=== PATIENT | male | born 1960 | race Caucasian/White ===

== ENCOUNTER 2017-12-31 04:17 | Inpatient (IN) | payer BC ==
[~2017-12-31] VITALS: Ht 177.8 cm; Wt 127.5 kg
--- NOTE | 2017-12-31 04:37 | PHYS DOC ---
Past Medical History Past Medical History: Diabetes-Type II, High Cholesterol, Hypertension Past Surgical History: Appendectomy Smoking: Cigarettes (The patient is a nonsmoker.) Adult General Chief Complaint Chief Complaint: GENERAL COMPLAINT HPI HPI Patient is a 57-year-old male who presents to the emergency department for evaluation. He states that for the past 2-3 days he just hasn't felt well, with a poor appetite, and general malaise and fatigue. He has not had any real pain. He denies any headache or chest pain, or shortness of breath, has not had any significant cough. He has felt somewhat dizzy and lightheaded at times. He states he was constipated but took some MiraLAX to help him have a bowel movement. He has had some generalized abdominal discomfort and a poor appetite, but no definite abdominal pain. He is noted to be febrile and tachycardic upon arrival. He has not had any nausea, vomiting, black or bloody stools, or diarrhea. There are no alleviating or exacerbating factors to his symptoms. She does report decreased by mouth intake. Patient denies any tick bites or known exposure to tick infested areas. Review of Systems Review of Systems Constitutional: Reports chills [] Eyes: Denies change in visual acuity, redness, or eye pain [] HENT: Denies nasal congestion or sore throat [] Respiratory: Denies cough or shortness of breath [] Cardiovascular: The patient denies any shortness of breath, chest pain, palpitations, or orthopnea[] GI: As per history of present illness[] : Denies dysuria or hematuria [] Musculoskeletal: Denies back pain or joint pain /arthralgias or myalgias.[] Integument: Denies rash or skin lesions [] Neurologic: Denies headache, focal weakness or sensory changes [] Endocrine: Denies polyuria or polydipsia [] All other systems were reviewed and found to be within normal limits, except as documented in this note. Current Medications Current Medications Current Medications Medications (Trade) Dose Ordered Sig/Geovanny Start Time Stop Time Status Last Admin Dose Admin Acetaminophen (Tylenol) 1,000 mg 1X ONCE 12/31/17 05:00 12/31/17 05:01 DC 12/31/17 05:16 1,000 MG Ceftriaxone Sodium 50 ml @ 100 mls/hr 1X ONCE 12/31/17 05:00 12/31/17 05:29 DC 12/31/17 05:17 100 MLS/HR Sodium Chloride 1,000 ml @ 1,000 mls/hr Q1H 12/31/17 05:00 12/31/17 08:44 12/31/17 05:18 1,000 MLS/HR Allergies Allergies Allergies Coded Allergies Type Severity Reaction Last Updated Verified Penicillins Allergy Intermediate 12/31/17 Yes amoxicillin Allergy Intermediate 12/31/17 Yes clavulanic acid Allergy Intermediate 12/31/17 Yes Physical Exam Physical Exam PHYSICAL EXAM: CONSTITUTIONAL: Well developed, well nourished HEAD: normocephalic, atraumatic EENT: PERRL, EOMI. Conjunctivae normal color, sclerae non-icteric; mildly dry mucous membranes. NECK: Supple, non-tender; no meningismus. LUNGS: Lungs CTA, breathing even and unlabored. Normal air movement. HEART: Regular tachycardia cardia, no murmur CHEST: No deformity; non-tender ABDOMEN: The abdomen is soft, mildly distended, with diminished bowel sounds, there is mild diffuse tenderness to palpation, without focal tenderness, rebound , or guarding, no masses or bruits. There is no focal right upper quadrant tenderness to palpation. Meier sign is absent. EXTREM: Normal ROM; no deformity, no calf tenderness. Normal pulses palpable in all extremities. There is no pedal edema. SKIN: No rash; no diaphoresis NEURO: Alert; normal speech and cognition; CN's grossly intact; strength grossly intact without focal deficit. BACK: No CVA TTP. Current Patient Data Lab Values Laboratory Tests Test 12/31/17 04:47 12/31/17 04:57 White Blood Count 3.9 x10^3/uL (4.0-11.0) L Red Blood Count 4.89 x10^6/uL (4.30-5.70) Hemoglobin 15.8 g/dL (13.0-17.5) Hematocrit 43.5 % (39.0-53.0) Mean Corpuscular Volume 89 fL (79-100) Mean Corpuscular Hemoglobin 32 pg (25-35) Mean Corpuscular Hemoglobin Concent 36 g/dL (31-37) Red Cell Distribution Width 13.3 % (11.5-14.5) Platelet Count 135 x10^3/uL (140-400) L Neutrophils (%) (Auto) 76 % (31-73) H Lymphocytes (%) (Auto) 12 % (24-48) L Monocytes (%) (Auto) 12 % (0-9) H Eosinophils (%) (Auto) 0 % (0-3) Basophils (%) (Auto) 1 % (0-3) Neutrophils # (Auto) 3.0 x10^3uL (1.8-7.7) Lymphocytes # (Auto) 0.5 x10^3/uL (1.0-4.8) L Monocytes # (Auto) 0.5 x10^3/uL (0.0-1.1) Eosinophils # (Auto) 0.0 x10^3/uL (0.0-0.7) Basophils # (Auto) 0.0 x10^3/uL (0.0-0.2) Prothrombin Time 13.4 SEC (11.7-14.0) Prothrombin Time INR 1.1 (0.8-1.1) Sodium Level 128 mmol/L (136-145) L Potassium Level 4.6 mmol/L (3.5-5.1) Chloride Level 93 mmol/L (98-107) L Carbon Dioxide Level 26 mmol/L (21-32) Anion Gap 9 (6-14) 18 mmol/L (6-14) H Blood Urea Nitrogen 30 mg/dL (8-26) H Creatinine 2.0 mg/dL (0.7-1.3) H Estimated GFR (Cockcroft-Gault) 34.4 BUN/Creatinine Ratio 15 (6-20) Glucose Level 260 mg/dL (70-99) H 250 mg/dL (70-99) H Lactic Acid Level 1.9 mmol/L (0.4-2.0) Calcium Level 9.0 mg/dL (8.5-10.1) Magnesium Level 2.0 mg/dL (1.8-2.4) Total Bilirubin 1.6 mg/dL (0.2-1.0) H Aspartate Amino Transferase (AST) 64 U/L (15-37) H Alanine Aminotransferase (ALT) 85 U/L (16-63) H Alkaline Phosphatase 44 U/L (46-116) L Creatine Kinase 182 U/L (39-308) Creatine Kinase MB (Mass) 1.4 ng/mL (0.0-3.6) Creatine Kinase MB Relative Index 0.8 % (0-4) Troponin I Quantitative < 0.017 ng/mL (0.000-0.055) JX-Fur-C-Type Natriuretic Peptide 106 pg/mL (0-124) Total Protein 7.0 g/dL (6.4-8.2) Albumin 4.1 g/dL (3.4-5.0) Albumin/Globulin Ratio 1.4 (1.0-1.7) Lipase 154 U/L (73-393) Thyroid Stimulating Hormone (TSH) 3.706 uIU/mL (0.358-3.74) Free Thyroxine 0.99 ng/dL (0.76-1.46) Heterophil Agglutinins Negative (NEGATIVE) POC Hemoglobin 15.3 g/dL (14-18) POC Hematocrit 45 % (37-52) POC Sodium 130 mmol/L (135-145) L POC Potassium 4.5 mmol/L (3.5-5.0) POC Chloride 93 mmol/L (98-110) L POC Total CO2 25 mmol/L (23-32) POC Blood Urea Nitrogen 31 mg/dL (8-26) H POC Creatinine 1.9 mg/dL (0.5-1.4) H POC Ionized Calcium (Kianna) 1.10 mmol/L (1.13-1.32) L Laboratory Tests 12/31/17 04:47 Laboratory Tests 12/31/17 04:47 12/31/17 04:57 EKG EKG [Sinus tachycardia at a rate of 138 bpm, rightward axis, normal intervals, there are no acute ischemic ST/T changes.] Radiology/Procedures Radiology/Procedures [ER physician for limited chest X interpretation: Prominent mediastinum likely a result of AP projection, without other acute abnormality. Course & Med Decision Making Course & Med Decision Making Pertinent Labs and Imaging studies reviewed. (See chart for details) [Patient's condition remained stable. His heart rate has improved to the 110's. I'm uncertain of the etiology of his symptoms. His blood testing certainly could be consistent with a rickettsial illness. I discussed the case with the patient's PCP, who will admit the patient for further evaluation and treatment. CT abdomen/pelvis report is currently pending., as is UA, pending specimen collection] Dragon Disclaimer Dragon Disclaimer This electronic medical record was generated, in whole or in part, using a voice recognition dictation system. Departure Departure Impression: Primary Impression: FUO (fever of unknown origin) Additional Impressions: Hyponatremia Renal insufficiency Elevated liver function tests Disposition: ADMITTED INPATIENT Admitting Physician: Cheo Daily Condition: STABLE Referrals: CHEO DAILY MD (PCP) Problem Qualifiers PARISH JONES MD Dec 31, 2017 04:37
[2017-12-31] MEDS ORDERED: ASPI325T8 PO (04:40)
[2017-12-31] MEDS ORDERED: AMLO5TAB2 PO (04:40)
[2017-12-31] MEDS ORDERED: IRBE300T3 PO (04:40)
[2017-12-31] MEDS ORDERED: FENO134C PO (04:41)
[2017-12-31] MEDS ORDERED: ATOR10TA PO (04:41)
[2017-12-31] MEDS ORDERED: PIOG45TA40 PO (04:41)
[2017-12-31] MEDS ORDERED: METF500T5 PO (04:41)
[2017-12-31] MEDS ORDERED: ALPR0.5T PO (04:42)
[2017-12-31] MEDS ORDERED: ZOLP10TA PO (04:42)
[2017-12-31 04:59] LABS: BASO % 1 % (0-3); EOS % 0 % (0-3); HEMATOCRIT 43.5 % (39.0-53.0); HEMOGLOBIN 15.8 g/dL (13.0-17.5); LYMPH # 0.5 x10^3/uL (1.0-4.8); LYMPH % 12 % (24-48); MEAN CORPUSCULAR HEMOGLOBIN 32 pg (25-35); MEAN CORPUSCULAR HGB CONC 36 g/dL (31-37); MEAN CORPUSCULAR VOLUME 89 fL (79-100); MONO # 0.5 x10^3/uL (0.0-1.1); MONO % 12 % (0-9); NEUT % 76 % (31-73); PLATELET COUNT 135 x10^3/uL (140-400); RED BLOOD COUNT 4.89 x10^6/uL (4.30-5.70); RED CELL DISTRIBUTION WIDTH 13.3 % (11.5-14.5); WHITE BLOOD COUNT 3.9 x10^3/uL (4.0-11.0)
[2017-12-31] MEDS ORDERED: ACETAMINOPHEN 500 MG TABLET PO ONE (05:00)
[2017-12-31 05:11] LABS: PROTHROMBIN TIME PATIENT 13.4 SEC (11.7-14.0)
[2017-12-31 05:13] LABS: GFR 34.4; POTASSIUM 4.6 mmol/L (3.5-5.1)
[2017-12-31 05:16] LABS: CREATININE ISTAT 1.9 mg/dL (0.5-1.4); HEMOGLOBIN ISTAT 15.3 g/dL (14-18); ION CA ISTAT 1.1 mmol/L (1.13-1.32); POTASSIUM ISTAT 4.5 mmol/L (3.5-5.0)
[2017-12-31] MEDS: IV NORMAL SALINE 1000ML BAG 1,000 ML IV SCH ×4 (05:18→10:11)
[2017-12-31 05:24] LABS: ALBUMIN 4.1 g/dL (3.4-5.0); ALBUMIN/GLOBULIN RATIO 1.4 (1.0-1.7); TOTAL BILIRUBIN 1.6 mg/dL (0.2-1.0)
[2017-12-31 05:26] LABS: FREE T4 0.99 ng/dL (0.76-1.46); THYROID STIM HORMONE (TSH) 3.706 uIU/mL (0.358-3.74)
[2017-12-31 05:28] LABS: MONONUCLEOSIS PATIENT NEGATIVE (NEGATIVE)
--- NOTE | 2017-12-31 06:06 | RAD ---
CT abdomen and pelvis without contrast 12/31/2017 CLINICAL INDICATION: Abdominal pain and fever. COMPARISON: None. TECHNIQUE: Multiple CT images of the abdomen and pelvis were obtained without contrast. *One or more of the following individualized dose reduction techniques were utilized for this examination: 1. Automated exposure control. 2. Adjustment of the mA and/or kV according to patient size. 3. Use of iterative reconstruction technique. FINDINGS: Heart size is normal. Coronary artery calcifications. Visualized lung bases are clear. Mild diffuse hepatic steatosis. Mild splenomegaly measuring 15 cm oblique CC. Cholelithiasis in a nondilated gallbladder. Unenhanced contours of the adrenal glands, pancreas and kidneys are grossly unremarkable apart from a few tiny bilateral renal sinus cysts. No hydronephrosis or nephrolithiasis. Abdominal aorta normal in caliber with mild aortoiliac calcified atheromatous disease. Small and large bowel loops are normal in caliber without obstruction. Mild distal colonic diverticula without diverticulitis. Appendix is not discretely identified, however no secondary findings of appendicitis of the base of the cecum. Minimally distended unopacified urinary bladder, prostate seminal vesicles are unremarkable. There are no destructive osseous lesions. IMPRESSION: 1. Cholelithiasis. 2. Mild hepatic steatosis. 3. Mild splenomegaly. 4. Appendix is not visualized, however no secondary findings of appendicitis at the base of the cecum. 5. Coronary artery calcifications. Electronically signed by: Zeus Sommer MD (12/31/2017 6:02 AM) [facility]
[2017-12-31 06:22] LABS: BACTERIA,URINE FEW /HPF (0-FEW); BILIRUBIN,URINE SMALL (NEG); CLARITY,URINE CLOUDY; COLOR,URINE ORANGE; HYALINE CASTS, URINE MODERATE /HPF; NITRITE,URINE NEGATIVE (NEG); PROTEIN,URINE 100 mg/dL (NEG-TRACE); RBC,URINE RARE /HPF (0-2)
--- NOTE | 2017-12-31 06:22 | EKG ---
[facility] [address] [place] [address] Test Date: 2017-12-31 Test Time: 04:28:47 Pat Name: ALMA DELIA REYNA Department: Room: [facility] 1 Gender: M [employer] Engine [employer] Manager: : 1960 Requested By: PARISH JONES Order Number: [id number] Reading MD: Felton Amin MD Measurements Intervals [place] Rate: 137 P: -144 SC: 120 QRS: 175 QRSD: 72 T: 21 QT: 258 QTc: 396 Interpretive Statements PROBABLE SINUS TACHYCARDIA LIMB LEAD MISPLACEMENT Electronically Signed On 01-03-2018 10:35:36 CDT by Felton Amin MD
[2017-12-31 07:00] VITALS: BP 100/53
--- NOTE | 2017-12-31 07:10 | RAD ---
Portable AP chest. HISTORY: Fever Portable AP view was taken of the chest. The abdomen partially obscures visualization of the lung bases. No confluent infiltrates are noted. Heart is normal in size. IMPRESSION: 1. No acute infiltrates noted. Electronically signed by: Obed Schneider MD (12/31/2017 7:07 AM) [facility]
[2017-12-31] MEDS: LOSARTAN POTASSIUM 50 MG TABLET. PO SCH (09:00)
[2017-12-31] MEDS: amLODIPine BESYLATE 5 MG TABLET PO SCH (09:00)
--- NOTE | 2017-12-31 09:00 | PDOC ---
GENERAL General: see dictated H&P. VITAL SIGNS Vital Signs: Vital Signs Date Time Temp Pulse Resp B/P (MAP) Pulse Ox O2 Delivery O2 Flow Rate FiO2 12/31/17 07:00 98.1 74 16 100/53 (69) 93 Room Air 98.1 12/31/17 06:00 2.0 I & O I & O Intake and Output 12/31/17 07:00 Intake Total 1170 ml Output Total 0 ml Balance 1170 ml Intake Oral 120 ml IV Total 1050 ml Output Urine Total 0 ml ALLERGIES Allergies: Allergies Coded Allergies Type Severity Reaction Last Updated Verified Penicillins Allergy Intermediate 12/31/17 Yes amoxicillin Allergy Intermediate 12/31/17 Yes clavulanic acid Allergy Intermediate 12/31/17 Yes MEDS Medications: Current Medications Medications (Trade) Dose Ordered Sig/Geovanny Start Time Stop Time Status Last Admin Dose Admin Acetaminophen (Tylenol) 1,000 mg 1X ONCE 12/31/17 05:00 12/31/17 05:01 DC 12/31/17 05:16 1,000 MG Alprazolam (Xanax) 0.5 mg TID 12/31/17 09:00 Amlodipine Besylate (Norvasc) 5 mg DAILY 12/31/17 09:00 Aspirin (Kavita Aspirin) 325 mg DAILY 12/31/17 09:00 Atorvastatin Calcium (Lipitor) 10 mg QHS 12/31/17 21:00 Ceftriaxone Sodium 50 ml @ 100 mls/hr 1X ONCE 12/31/17 05:00 12/31/17 05:29 DC 12/31/17 05:17 100 MLS/HR Losartan Potassium (Cozaar) 50 mg DAILY 12/31/17 09:00 Pioglitazone HCl (Actos) 45 mg DAILY 12/31/17 09:00 Sodium Chloride 1,000 ml @ 1,000 mls/hr Q1H 12/31/17 05:00 12/31/17 08:44 DC 12/31/17 08:13 1,000 MLS/HR LAB Lab: Laboratory Tests Test 12/31/17 04:47 12/31/17 04:57 12/31/17 05:58 12/31/17 07:23 White Blood Count 3.9 x10^3/uL (4.0-11.0) Red Blood Count 4.89 x10^6/uL (4.30-5.70) Hemoglobin 15.8 g/dL (13.0-17.5) Hematocrit 43.5 % (39.0-53.0) Mean Corpuscular Volume 89 fL (79-100) Mean Corpuscular Hemoglobin 32 pg (25-35) Mean Corpuscular Hemoglobin Concent 36 g/dL (31-37) Red Cell Distribution Width 13.3 % (11.5-14.5) Platelet Count 135 x10^3/uL (140-400) Neutrophils (%) (Auto) 76 % (31-73) Lymphocytes (%) (Auto) 12 % (24-48) Monocytes (%) (Auto) 12 % (0-9) Eosinophils (%) (Auto) 0 % (0-3) Basophils (%) (Auto) 1 % (0-3) Neutrophils # (Auto) 3.0 x10^3uL (1.8-7.7) Lymphocytes # (Auto) 0.5 x10^3/uL (1.0-4.8) Monocytes # (Auto) 0.5 x10^3/uL (0.0-1.1) Eosinophils # (Auto) 0.0 x10^3/uL (0.0-0.7) Basophils # (Auto) 0.0 x10^3/uL (0.0-0.2) Prothrombin Time 13.4 SEC (11.7-14.0) Prothromb Time International Ratio 1.1 (0.8-1.1) Sodium Level 128 mmol/L (136-145) Potassium Level 4.6 mmol/L (3.5-5.1) Chloride Level 93 mmol/L (98-107) Carbon Dioxide Level 26 mmol/L (21-32) Anion Gap 9 (6-14) 18 mmol/L (6-14) Blood Urea Nitrogen 30 mg/dL (8-26) Creatinine 2.0 mg/dL (0.7-1.3) Estimated GFR (Cockcroft-Gault) 34.4 BUN/Creatinine Ratio 15 (6-20) Glucose Level 260 mg/dL (70-99) 250 mg/dL (70-99) Lactic Acid Level 1.9 mmol/L (0.4-2.0) Calcium Level 9.0 mg/dL (8.5-10.1) Magnesium Level 2.0 mg/dL (1.8-2.4) Total Bilirubin 1.6 mg/dL (0.2-1.0) Aspartate Amino Transf (AST/SGOT) 64 U/L (15-37) Alanine Aminotransferase (ALT/SGPT) 85 U/L (16-63) Alkaline Phosphatase 44 U/L (46-116) Creatine Kinase 182 U/L (39-308) Creatine Kinase MB (Mass) 1.4 ng/mL (0.0-3.6) Creatine Kinase MB Relative Index 0.8 % (0-4) Troponin I Quantitative < 0.017 ng/mL (0.000-0.055) TV-Doq-B-Type Natriuretic Peptide 106 pg/mL (0-124) Total Protein 7.0 g/dL (6.4-8.2) Albumin 4.1 g/dL (3.4-5.0) Albumin/Globulin Ratio 1.4 (1.0-1.7) Lipase 154 U/L (73-393) Thyroid Stimulating Hormone (TSH) 3.706 uIU/mL (0.358-3.74) Free Thyroxine 0.99 ng/dL (0.76-1.46) Heterophil Agglutinins Negative (NEGATIVE) Bedside Hemoglobin 15.3 g/dL (14-18) Bedside Hematocrit 45 % (37-52) Bedside Sodium 130 mmol/L (135-145) Bedside Potassium 4.5 mmol/L (3.5-5.0) Bedside Chloride 93 mmol/L (98-110) Bedside Total CO2 25 mmol/L (23-32) Bedside Blood Urea Nitrogen 31 mg/dL (8-26) Bedside Creatinine 1.9 mg/dL (0.5-1.4) Bedside Ionized Calcium (Kianna) 1.10 mmol/L (1.13-1.32) Urine Collection Type Void Urine Color [place] Urine Clarity Cloudy Urine pH 5.0 Urine Specific [place] >=1.030 Urine Protein 100 mg/dL (NEG-TRACE) Urine Glucose (UA) >=1000 mg/dL (NEG) Urine Ketones (Stick) Trace mg/dL (NEG) Urine Blood Negative (NEG) Urine Nitrite Negative (NEG) Urine Bilirubin Small (NEG) Urine Urobilinogen Dipstick 1.0 mg/dL (0.2 mg/dL) Urine Leukocyte Esterase Negative (NEG) Urine RBC Rare /HPF (0-2) Urine WBC 1-4 /HPF (0-4) Urine Squamous Epithelial Cells None /LPF Urine Bacteria Few /HPF (0-FEW) Urine Hyaline Casts Moderate /HPF Urine Mucus Mod /LPF Glucose (Fingerstick) 185 mg/dL (70-99) CHEO DAILY MD Dec 31, 2017 09:00
--- NOTE | 2017-12-31 09:17 | PDOC ---
Infectious Disease Note Vital Sign Vital Signs Vital Signs Date Time Temp Pulse Resp B/P (MAP) Pulse Ox O2 Delivery O2 Flow Rate FiO2 12/31/17 07:00 98.1 74 16 100/53 (69) 93 Room Air 98.1 12/31/17 06:00 2.0 Labs Lab Laboratory Tests Test 12/31/17 04:47 12/31/17 04:57 12/31/17 05:58 12/31/17 07:23 White Blood Count 3.9 x10^3/uL (4.0-11.0) Red Blood Count 4.89 x10^6/uL (4.30-5.70) Hemoglobin 15.8 g/dL (13.0-17.5) Hematocrit 43.5 % (39.0-53.0) Mean Corpuscular Volume 89 fL (79-100) Mean Corpuscular Hemoglobin 32 pg (25-35) Mean Corpuscular Hemoglobin Concent 36 g/dL (31-37) Red Cell Distribution Width 13.3 % (11.5-14.5) Platelet Count 135 x10^3/uL (140-400) Neutrophils (%) (Auto) 76 % (31-73) Lymphocytes (%) (Auto) 12 % (24-48) Monocytes (%) (Auto) 12 % (0-9) Eosinophils (%) (Auto) 0 % (0-3) Basophils (%) (Auto) 1 % (0-3) Neutrophils # (Auto) 3.0 x10^3uL (1.8-7.7) Lymphocytes # (Auto) 0.5 x10^3/uL (1.0-4.8) Monocytes # (Auto) 0.5 x10^3/uL (0.0-1.1) Eosinophils # (Auto) 0.0 x10^3/uL (0.0-0.7) Basophils # (Auto) 0.0 x10^3/uL (0.0-0.2) Prothrombin Time 13.4 SEC (11.7-14.0) Prothromb Time International Ratio 1.1 (0.8-1.1) Sodium Level 128 mmol/L (136-145) Potassium Level 4.6 mmol/L (3.5-5.1) Chloride Level 93 mmol/L (98-107) Carbon Dioxide Level 26 mmol/L (21-32) Anion Gap 9 (6-14) 18 mmol/L (6-14) Blood Urea Nitrogen 30 mg/dL (8-26) Creatinine 2.0 mg/dL (0.7-1.3) Estimated GFR (Cockcroft-Gault) 34.4 BUN/Creatinine Ratio 15 (6-20) Glucose Level 260 mg/dL (70-99) 250 mg/dL (70-99) Lactic Acid Level 1.9 mmol/L (0.4-2.0) Calcium Level 9.0 mg/dL (8.5-10.1) Magnesium Level 2.0 mg/dL (1.8-2.4) Total Bilirubin 1.6 mg/dL (0.2-1.0) Aspartate Amino Transf (AST/SGOT) 64 U/L (15-37) Alanine Aminotransferase (ALT/SGPT) 85 U/L (16-63) Alkaline Phosphatase 44 U/L (46-116) Creatine Kinase 182 U/L (39-308) Creatine Kinase MB (Mass) 1.4 ng/mL (0.0-3.6) Creatine Kinase MB Relative Index 0.8 % (0-4) Troponin I Quantitative < 0.017 ng/mL (0.000-0.055) CM-Bed-S-Type Natriuretic Peptide 106 pg/mL (0-124) Total Protein 7.0 g/dL (6.4-8.2) Albumin 4.1 g/dL (3.4-5.0) Albumin/Globulin Ratio 1.4 (1.0-1.7) Lipase 154 U/L (73-393) Thyroid Stimulating Hormone (TSH) 3.706 uIU/mL (0.358-3.74) Free Thyroxine 0.99 ng/dL (0.76-1.46) Heterophil Agglutinins Negative (NEGATIVE) Bedside Hemoglobin 15.3 g/dL (14-18) Bedside Hematocrit 45 % (37-52) Bedside Sodium 130 mmol/L (135-145) Bedside Potassium 4.5 mmol/L (3.5-5.0) Bedside Chloride 93 mmol/L (98-110) Bedside Total CO2 25 mmol/L (23-32) Bedside Blood Urea Nitrogen 31 mg/dL (8-26) Bedside Creatinine 1.9 mg/dL (0.5-1.4) Bedside Ionized Calcium (Kianna) 1.10 mmol/L (1.13-1.32) Urine Collection Type Void Urine Color [place] Urine Clarity Cloudy Urine pH 5.0 Urine Specific [place] >=1.030 Urine Protein 100 mg/dL (NEG-TRACE) Urine Glucose (UA) >=1000 mg/dL (NEG) Urine Ketones (Stick) Trace mg/dL (NEG) Urine Blood Negative (NEG) Urine Nitrite Negative (NEG) Urine Bilirubin Small (NEG) Urine Urobilinogen Dipstick 1.0 mg/dL (0.2 mg/dL) Urine Leukocyte Esterase Negative (NEG) Urine RBC Rare /HPF (0-2) Urine WBC 1-4 /HPF (0-4) Urine Squamous Epithelial Cells None /LPF Urine Bacteria Few /HPF (0-FEW) Urine Hyaline Casts Moderate /HPF Urine Mucus Mod /LPF Glucose (Fingerstick) 185 mg/dL (70-99) Objective Assessment Fever with constitutional sy , 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
--- NOTE | 2017-12-31 10:03 | HP ---
ADMIT DATE: 12/31/2017 CHIEF COMPLAINT AND HISTORY OF PRESENT ILLNESS: This 57-year-old white male is well known to me from followup in the office. The patient presented to the Emergency Room on the morning of admission with profound weakness, fevers, chills and anorexia, which have been going on since Wednesday with relatively sudden onset. He admitted to sweats particularly at night having to change clothes on several occasions with the same. He denies any other localizing symptoms with infection and denies that really aches are a major problem with this, although he does have a little bit of a headache. PAST MEDICAL HISTORY: The patient's past medical history is remarkable for diabetes, hyperlipidemia and hypertension. PAST SURGICAL HISTORY: Remarkable for an appendectomy. MEDICATIONS: Brought with the patient, listed on the computer and have been addressed. ALLERGIES: HE IS ALLERGIC TO AUGMENTIN. FAMILY HISTORY: Noncontributory. REVIEW OF SYSTEMS: As mentioned above. PHYSICAL EXAMINATION: GENERAL: He is a well-developed, well-nourished white male, appearing mildly ill. VITAL SIGNS: Stable with a temperature of 102.3 since admission. HEAD, EYES, EARS, NOSE AND THROAT: Unremarkable. NECK: Supple without bruit or thyromegaly. CHEST: Clear to auscultation and percussion. HEART: Slightly tachycardic, regular without S3, S4 or murmur. ABDOMEN: Soft, nontender, without hepatosplenomegaly or masses. EXTREMITIES: Without cyanosis, clubbing or edema. NEUROLOGIC: Intact. SKIN: Survey is normal without any rashes. JOINTS: Without any swelling, etc. LABORATORY DATA: Initial laboratory is remarkable for mild leukopenia with a white count of 3900. His platelets are mildly depressed at 135,000. Differential shows 76% neutrophils and 12% monos, which are both elevated. Initial laboratory is remarkable for hyponatremia with sodium of 128. He has an acute renal injury with BUN of 30 and creatinine of 2. Glucose on admission is 260. He has mild elevation of transaminases with AST of 64, ALT of 85 and his bilirubin is 1.6. Urinalysis is normal and heterophile agglutinins are negative. IMPRESSION: Febrile illness with associated hyponatremia, leukopenia and acute renal failure as well as some elevated liver function test. PLAN: The patient has been admitted. He has been given a dose of Rocephin in the Emergency Room. His home meds have been restarted. I am going to ask Infectious Disease to come along and see him as I am not sure what is driving the bus, although I would expect that this is probably virally mediated. He gives no history at this point in time for any sort of tick exposure, etc., which would be a possibility in addition. CHEO DAILY MD DR: CORBY/marianne JOB#: [id number] / [id number]
[2017-12-31] MEDS: ALPRAZolam 0.5 MG TABLET PO SCH ×3 (10:11→20:38)
[2017-12-31] MEDS: PIOGLITAZONE 15 MG TABLET. PO SCH (10:13)
[2017-12-31] MEDS: ASPIRIN 325 MG TABLET PO SCH (10:13)
[2017-12-31] MEDS: DOXYCYCLINE HYCLATE 100 MG in IV DEXTROSE 5% 100ML 100 ML IV SCH ×2 (10:22→22:43)
[2017-12-31] MEDS: cefTRIAXone IV Push 1 GM VIAL. IVP SCH (10:22)
[2017-12-31 11:00] VITALS: BP 104/54
[2017-12-31 15:00] VITALS: BP 126/58
--- NOTE | 2017-12-31 15:24 | CONS ---
DATE OF CONSULTATION: 12/31/2017 REQUESTING PHYSICIAN: Dr. Sommers. REASON FOR CONSULTATION: Fever of unknown origin. HISTORY OF PRESENT ILLNESS: This is a 57-year-old gentleman with a history of diabetes, hypertension, although quite otherwise healthy, who presented with about 3-day history of not feeling well, body ache, headache, malaise, no energy, fever and sweats. The patient denied any cough, shortness of breath. He had slight headache. Denied any chest pain, abdominal pain, urinary symptoms or bowel symptoms. The patient was seen in the ER and was admitted. The patient did have 102.3 temperature. His other remarkable thing was low WBCs, low platelets and elevated liver function tests. The patient had a CT of the abdomen and pelvis, which was unremarkable other than cholelithiasis. The patient also had a chest x-ray, which was unremarkable. The patient had been given a dose of Rocephin and consult has been requested. The patient denies any other complaints. PAST MEDICAL HISTORY: Positive for diabetes, hypertension, hyperlipidemia, has had appendicectomy. SOCIAL HISTORY: Negative for smoking, alcohol use or drug use. The patient does a lot of outside yard work as well as he plays golf, and he does not remember any tick bite, but he does not check after doing those activities. There is no recent travel. No other pertinent history. ALLERGIES: LISTED ALLERGIC TO PENICILLIN, CAUSES A RASH. REVIEW OF SYSTEMS: As per HPI, all other systems reviewed are negative. CURRENT MEDICATIONS: Reviewed. The patient has been given one dose of Rocephin IV. PHYSICAL EXAMINATION: GENERAL: Alert and awake gentleman, not in distress. VITAL SIGNS: Temperature 98.1 with a T-max 102.3, pulse 74, respirations 16, blood pressure 100/53. HEENT: Anicteric. NECK: Supple, no JVP, no lymphadenopathy. LUNGS: Clear. HEART: S1, S2 regular. ABDOMEN: Benign. EXTREMITIES: No edema or cyanosis. SKIN: Unremarkable. NEUROLOGIC: The patient is neurologically intact. LABORATORY DATA: White count is 3.9, platelets are 135,000. There are no prior numbers for comparison available. His BUN is 31, creatinine is 1.9. Urinalysis, unremarkable. Heterophile agglutinin is negative. CT abdomen, pelvis and chest x-ray as I mentioned in the HPI. IMPRESSION: 1. 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 He does not look sick enough to have [place] spotted fever. 2. Dehydration with acute renal failure. 3. Diabetes. 4. Hypertension. 5. Hyperlipidemia. RECOMMENDATIONS: We will start him on doxycycline, continue Rocephin. We will order ehrlichia PCR. Blood culture has not been done, we will order those and continue to follow. Thank you very much, Dr. Sommers for giving me the opportunity to participate in this patient's care. VALERIY GUZMÁN MD DR: AMBER/marianne JOB#: [id number] / [id number]
[2017-12-31 19:10] VITALS: BP 135/68
[2017-12-31] MEDS ORDERED: ACETAMINOPHEN 325 MG TABLET. PO PRN (20:30)
[2017-12-31] MEDS: ATORVASTATIN CALCIUM 10 MG TABLET. PO SCH (20:38)
[2017-12-31 23:00] VITALS: BP 100/62
[2018-01-01] VITALS (7 sets, daily range): BP systolic 107–144; BP diastolic 57–68
[2018-01-01] MEDS: LOSARTAN POTASSIUM 50 MG TABLET. PO SCH (08:51)
[2018-01-01] MEDS: ASPIRIN 325 MG TABLET PO SCH (08:52)
[2018-01-01] MEDS: PIOGLITAZONE 15 MG TABLET. PO SCH (08:52)
[2018-01-01] MEDS: ALPRAZolam 0.5 MG TABLET PO SCH ×3 (08:52→21:15)
[2018-01-01] MEDS: amLODIPine BESYLATE 5 MG TABLET PO SCH (08:52)
[2018-01-01] MEDS: DOXYCYCLINE HYCLATE 100 MG in IV DEXTROSE 5% 100ML 100 ML IV SCH ×2 (08:53→21:15)
[2018-01-01] MEDS: cefTRIAXone IV Push 1 GM VIAL. IVP SCH (11:37)
--- NOTE | 2018-01-01 15:27 | PDOC ---
Infectious Disease Note Subjective Subjective Feeling better over-all 102.6 temp last evening. No further fevers so far today. Denies chills/sweats/N/V/D/cough/rash ROS ROS per HPI otherwise negative Vital Sign Vital Signs Vital Signs Date Time Temp Pulse Resp B/P (MAP) Pulse Ox O2 Delivery O2 Flow Rate FiO2 01/01/18 11:37 98.8 94 16 144/68 (93) 92 98.8 01/01/18 08:00 Room Air Physical Exam PHYSICAL EXAM GENERAL: Propped up in bed, alert, smiling NECK: Supple, no JVP, no lymphadenopathy. LUNGS: Clear. HEART: S1, S2 regular. ABDOMEN: Obese, soft, NT EXTREMITIES: No edema or cyanosis. 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 He does not look sick enough to have Gotham spotted fever. 2. Dehydration with acute renal failure. 3. Diabetes. 4. Hypertension. 5. Hyperlipidemia. Plan Plan of Care Clinically improving Continue jose and Farzana Unable to order Ehrlichia PCR/AB tests Supportive care D/w Patient seen and examined. Chart reviewed in detail. Case discussed with TRAFFIC REPRESENTATIVE. Agree with above plan. SOLIS DELAROSA APRN Jan 01, 2018 15:27 YOLI VILLALTA MD Jan 01, 2018 19:43
[2018-01-01] MEDS: ATORVASTATIN CALCIUM 10 MG TABLET. PO SCH (21:14)
[2018-01-01] MEDS: LACTOBACILLUS RHAMNOSUS GG 1 CAPSULE. PO SCH (21:15)
[2018-01-01] MEDS: ZOLPIDEM 5 MG TABLET. PO PRN (21:15)
--- NOTE | 2018-01-01 21:24 | PN ---
DATE: 01/01/2018 LOCATION: Room 550. SUBJECTIVE: The patient is awake and alert, still feels quite fatigued and anorexic, feels better when he is not running a fever. Still does not recall any sort of tick bites prior to this admission in all summer. OBJECTIVE: VITAL SIGNS: Stable. T-max in the last 24 hours was last evening of around 102.6. CHEST: Clear. HEART: Regular. ABDOMEN: Benign. SKIN: No skin rash. Sugars have been much better. Infectious Disease consults are appreciated. IMPRESSION: Febrile illness, most consistent with either rickettsial disease versus viral with depressed white count on admission. PLAN: Continue on present therapy, which includes Rocephin and doxycycline. Await any pending cultures and plans for discharge will be per ID as we get further along. CHEO DAILY MD DR: CORBY/marianne JOB#: [id number] / [id number]
[2018-01-02 03:00] VITALS: BP 116/66
[2018-01-02 05:42] LABS: HEMATOCRIT 35.2 % (39.0-53.0); HEMOGLOBIN 12.9 g/dL (13.0-17.5); RED BLOOD COUNT 3.99 x10^6/uL (4.30-5.70); RED CELL DISTRIBUTION WIDTH 13.2 % (11.5-14.5); WHITE BLOOD COUNT 2.7 x10^3/uL (4.0-11.0)
[2018-01-02 06:04] LABS: ALBUMIN 3.2 g/dL (3.4-5.0); ALBUMIN/GLOBULIN RATIO 1.1 (1.0-1.7); CALCIUM 8.5 mg/dL (8.5-10.1); CREATININE 1.3 mg/dL (0.7-1.3); GFR 56.5; POTASSIUM 3.8 mmol/L (3.5-5.1); TOTAL BILIRUBIN 0.9 mg/dL (0.2-1.0); TOTAL PROTEIN 6.2 g/dL (6.4-8.2)
[2018-01-02 07:00] VITALS: BP 112/61
[2018-01-02] MEDS: PIOGLITAZONE 15 MG TABLET. PO SCH (08:42)
[2018-01-02] MEDS: ASPIRIN 325 MG TABLET PO SCH (08:42)
[2018-01-02] MEDS: LACTOBACILLUS RHAMNOSUS GG 1 CAPSULE. PO SCH ×2 (08:42→19:52)
[2018-01-02] MEDS: LOSARTAN POTASSIUM 50 MG TABLET. PO SCH (08:45)
[2018-01-02] MEDS: amLODIPine BESYLATE 5 MG TABLET PO SCH (08:46)
[2018-01-02] MEDS: ALPRAZolam 0.5 MG TABLET PO SCH ×3 (08:46→19:50)
[2018-01-02] MEDS: DOXYCYCLINE HYCLATE 100 MG in IV DEXTROSE 5% 100ML 100 ML IV SCH ×2 (08:46→19:51)
--- NOTE | 2018-01-02 10:23 | PDOC ---
Infectious Disease Note Subjective Subjective Hoping to go home soon, feeling better Low-grade fever, 100.1 Denies chills/sweats/N/V/D/cough/rash Vital Sign Vital Signs Vital Signs Date Time Temp Pulse Resp B/P (MAP) Pulse Ox O2 Delivery O2 Flow Rate FiO2 01/02/18 08:46 91 112/61 01/02/18 08:00 Room Air 01/02/18 07:00 98.1 18 93 98.1 Physical Exam PHYSICAL EXAM GENERAL: Propped up in bed, NAD LUNGS: Clear. HEART: S1, S2 regular. ABDOMEN: Obese, soft, NT EXTREMITIES: No edema or cyanosis. SKIN: without rash NEUROLOGIC: Alert and oriented x 3 PIV Labs Lab Laboratory Tests Test 01/01/18 10:29 01/01/18 16:06 01/01/18 21:33 01/02/18 04:50 Glucose (Fingerstick) 151 mg/dL (70-99) 102 mg/dL (70-99) 153 mg/dL (70-99) White Blood Count 2.7 x10^3/uL (4.0-11.0) Red Blood Count 3.99 x10^6/uL (4.30-5.70) Hemoglobin 12.9 g/dL (13.0-17.5) Hematocrit 35.2 % (39.0-53.0) Mean Corpuscular Volume 88 fL (79-100) Mean Corpuscular Hemoglobin 32 pg (25-35) Mean Corpuscular Hemoglobin Concent 37 g/dL (31-37) Red Cell Distribution Width 13.2 % (11.5-14.5) Platelet Count 127 x10^3/uL (140-400) Sodium Level 136 mmol/L (136-145) Potassium Level 3.8 mmol/L (3.5-5.1) Chloride Level 100 mmol/L (98-107) Carbon Dioxide Level 28 mmol/L (21-32) Anion Gap 8 (6-14) Blood Urea Nitrogen 15 mg/dL (8-26) Creatinine 1.3 mg/dL (0.7-1.3) Estimated GFR (Cockcroft-Gault) 56.5 BUN/Creatinine Ratio 12 (6-20) Glucose Level 129 mg/dL (70-99) Calcium Level 8.5 mg/dL (8.5-10.1) Total Bilirubin 0.9 mg/dL (0.2-1.0) Aspartate Amino Transf (AST/SGOT) 47 U/L (15-37) Alanine Aminotransferase (ALT/SGPT) 74 U/L (16-63) Alkaline Phosphatase 37 U/L (46-116) Total Protein 6.2 g/dL (6.4-8.2) Albumin 3.2 g/dL (3.4-5.0) Albumin/Globulin Ratio 1.1 (1.0-1.7) Test 01/02/18 07:19 Glucose (Fingerstick) 140 mg/dL (70-99) Micro 12/31. BLOOD CULTURE Final GRAM POSITIVE COCCI IN CLUSTERS 3 SETS DRAWN, 2 OF 6 POSITIVE Objective Assessment GPC bacteremia (2 of 6 bottles) POA from 12/31. ID pending Fever Leucopenia Transaminitis Dehydration with acute renal failure - improved Diabetes. Hypertension. Hyperlipidemia. Plan Plan of Care Clinically improving Continue doxy and Rocephin. add vanc Awaiting GPC ID Repeat BC and am labs Monitor WBC/temp and renal function closely Unable to order Ehrlichia PCR/AB tests Supportive care D/w D/w RN D/w Dr. Aly Patient seen and examined. Chart reviewed in detail. Case discussed with RESEARCH STATISTICIAN. Agree with above plan. SOLIS DELAROSA APRN Jan 02, 2018 10:23 YOLI ALY MD Jan 02, 2018 21:20
[2018-01-02 11:00] VITALS: BP 107/64
[2018-01-02] MEDS ORDERED: VANCOMYCIN 2 GM in IV NORMAL SALINE 500ML BAG 500 ML IV ONE (11:00)
[2018-01-02] MEDS: cefTRIAXone IV Push 1 GM VIAL. IVP SCH (11:01)
[2018-01-02] MEDS: VANCOMYCIN PER PHARMACY MC PRN (12:37)
[2018-01-02 15:28] VITALS: BP 112/58
[2018-01-02 19:00] VITALS: BP 126/64
[2018-01-02] MEDS: ATORVASTATIN CALCIUM 10 MG TABLET. PO SCH (19:52)
[2018-01-02] MEDS: ZOLPIDEM 5 MG TABLET. PO PRN (21:45)
[2018-01-02 22:33] VITALS: BP 119/70
--- NOTE | 2018-01-02 23:31 | PN ---
DATE: 01/02/2018 LOCATION: He is in room 550. SUBJECTIVE: The patient is awake and alert, feels a little bit better than on admission, but still has no energy or appetite. OBJECTIVE: VITAL SIGNS: Stable with a T-max in the last 24 hours of 100.1, which is improved. CHEST: Clear. HEART: Regular. ABDOMEN: Benign. SKIN: Clear. LABORATORY DATA: WBC is depressed a little further at 2700, platelets are 127,000. Bilirubin has returned to normal. Creatinine has returned to normal. Sugars were good. He did have 2 of 6 bottles positive for gram-positive cocci in clusters and ID will be adjusting antibiotics for the same and I would guess this is a contaminant as I have no clear source for any sort of staphylococcal infection. IMPRESSION: 1. Febrile illness, presently undefined, but positive blood cultures. Awaiting ID and same. 2. Fevers, improved. 3. Leukopenia. 4. Thrombocytopenia. 5. Acute kidney injury, improved. 6. Diabetes with good sugars. PLAN: Continue present antibiotics with further adjustment of IV antibiotics per ID. Await final results of the cultures and otherwise, the same. CHEO DAILY MD DR: CORBY/marianne JOB#: [id number] / [id number]
[2018-01-02] MEDS: VANCOMYCIN 1.75 GM in IV NORMAL SALINE 500ML BAG 500 ML IV SCH (23:53)
[2018-01-03 02:32] VITALS: BP 117/56
[2018-01-03 03:57] LABS: BASO % 1 % (0-3); EOS # 0.1 x10^3/uL (0.0-0.7); EOS % 2 % (0-3); HEMATOCRIT 34.8 % (39.0-53.0); HEMOGLOBIN 12.6 g/dL (13.0-17.5); LYMPH # 1.2 x10^3/uL (1.0-4.8); LYMPH % 38 % (24-48); MEAN CORPUSCULAR HEMOGLOBIN 32 pg (25-35); MEAN CORPUSCULAR HGB CONC 36 g/dL (31-37); MEAN CORPUSCULAR VOLUME 89 fL (79-100); MONO # 0.4 x10^3/uL (0.0-1.1); MONO % 12 % (0-9); NEUT # 1.5 x10^3uL (1.8-7.7); NEUT % 47 % (31-73); PLATELET COUNT 140 x10^3/uL (140-400); RED BLOOD COUNT 3.89 x10^6/uL (4.30-5.70); WHITE BLOOD COUNT 3.3 x10^3/uL (4.0-11.0)
[2018-01-03 04:19] LABS: ALBUMIN/GLOBULIN RATIO 1.1 (1.0-1.7); CREATININE 1.2 mg/dL (0.7-1.3); POTASSIUM 3.9 mmol/L (3.5-5.1); TOTAL BILIRUBIN 0.7 mg/dL (0.2-1.0); TOTAL PROTEIN 5.8 g/dL (6.4-8.2)
[2018-01-03 07:00] VITALS: BP_SYST 116; BP_SYST 147; BP_DIAS 62; BP_DIAS 88
[2018-01-03] MEDS: ASPIRIN 325 MG TABLET PO SCH (08:53)
[2018-01-03] MEDS: PIOGLITAZONE 15 MG TABLET. PO SCH (08:53)
[2018-01-03] MEDS: LACTOBACILLUS RHAMNOSUS GG 1 CAPSULE. PO SCH ×2 (08:53→19:58)
[2018-01-03] MEDS: amLODIPine BESYLATE 5 MG TABLET PO SCH (08:53)
[2018-01-03] MEDS: DOXYCYCLINE HYCLATE 100 MG in IV DEXTROSE 5% 100ML 100 ML IV SCH ×2 (08:54→19:59)
[2018-01-03] MEDS: ALPRAZolam 0.5 MG TABLET PO SCH ×3 (08:54→19:58)
[2018-01-03] MEDS: LOSARTAN POTASSIUM 50 MG TABLET. PO SCH (08:54)
--- NOTE | 2018-01-03 10:40 | PDOC ---
Infectious Disease Note Subjective Subjective feeling good, no complaints, no fever ROS ROS no n/v/d/fever/headache Vital Sign Vital Signs Vital Signs Date Time Temp Pulse Resp B/P (MAP) Pulse Ox O2 Delivery O2 Flow Rate FiO2 01/03/18 08:54 82 117/56 01/03/18 08:00 Room Air 2.0 01/03/18 07:00 98.1 18 93 98.1 Physical Exam PHYSICAL EXAM GENERAL: Propped up in bed, NAD LUNGS: Clear. HEART: S1, S2 regular. ABDOMEN: Obese, soft, NT EXTREMITIES: No edema or cyanosis. SKIN: without rash NEUROLOGIC: Alert and oriented x 3 PIV Labs Lab Laboratory Tests Test 01/02/18 10:49 01/02/18 15:54 01/02/18 19:58 01/03/18 03:30 Glucose (Fingerstick) 173 mg/dL (70-99) 156 mg/dL (70-99) 177 mg/dL (70-99) White Blood Count 3.3 x10^3/uL (4.0-11.0) Red Blood Count 3.89 x10^6/uL (4.30-5.70) Hemoglobin 12.6 g/dL (13.0-17.5) Hematocrit 34.8 % (39.0-53.0) Mean Corpuscular Volume 89 fL (79-100) Mean Corpuscular Hemoglobin 32 pg (25-35) Mean Corpuscular Hemoglobin Concent 36 g/dL (31-37) Red Cell Distribution Width 13.0 % (11.5-14.5) Platelet Count 140 x10^3/uL (140-400) Neutrophils (%) (Auto) 47 % (31-73) Lymphocytes (%) (Auto) 38 % (24-48) Monocytes (%) (Auto) 12 % (0-9) Eosinophils (%) (Auto) 2 % (0-3) Basophils (%) (Auto) 1 % (0-3) Neutrophils # (Auto) 1.5 x10^3uL (1.8-7.7) Lymphocytes # (Auto) 1.2 x10^3/uL (1.0-4.8) Monocytes # (Auto) 0.4 x10^3/uL (0.0-1.1) Eosinophils # (Auto) 0.1 x10^3/uL (0.0-0.7) Basophils # (Auto) 0.0 x10^3/uL (0.0-0.2) Sodium Level 137 mmol/L (136-145) Potassium Level 3.9 mmol/L (3.5-5.1) Chloride Level 103 mmol/L (98-107) Carbon Dioxide Level 27 mmol/L (21-32) Anion Gap 7 (6-14) Blood Urea Nitrogen 13 mg/dL (8-26) Creatinine 1.2 mg/dL (0.7-1.3) Estimated GFR (Cockcroft-Gault) 62.0 BUN/Creatinine Ratio 11 (6-20) Glucose Level 132 mg/dL (70-99) Calcium Level 8.0 mg/dL (8.5-10.1) Total Bilirubin 0.7 mg/dL (0.2-1.0) Aspartate Amino Transf (AST/SGOT) 41 U/L (15-37) Alanine Aminotransferase (ALT/SGPT) 67 U/L (16-63) Alkaline Phosphatase 41 U/L (46-116) Total Protein 5.8 g/dL (6.4-8.2) Albumin 3.0 g/dL (3.4-5.0) Albumin/Globulin Ratio 1.1 (1.0-1.7) Test 01/03/18 07:29 Glucose (Fingerstick) 154 mg/dL (70-99) Micro BLOOD CULTURE Final GRAM POSITIVE COCCI AND GRAM POSITIVE MICHAEL 3 SETS DRAWN, 1 OF 6 GRAM POSITIVE MICHAEL AND COCCI 2 OF 6 GRAM POSITIVE COCCI CALLED TO APOORVA LINDSEY RN IN 5S BY Roscoe TREJO,01/02/18,1300 SPECIMEN SENDING TO LAB [facility] FOR FURTHER WORK UP Objective Assessment Fever with constitutional sy , 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
[2018-01-03 11:00] VITALS: BP 95/55
[2018-01-03] MEDS: cefTRIAXone IV Push 1 GM VIAL. IVP SCH (12:49)
[2018-01-03] MEDS: VANCOMYCIN PER PHARMACY MC PRN (13:02)
[2018-01-03] MEDS: VANCOMYCIN 1.75 GM in IV NORMAL SALINE 500ML BAG 500 ML IV SCH (14:12)
[2018-01-03 15:00] VITALS: BP 101/60
[2018-01-03 19:00] VITALS: BP 111/56
[2018-01-03] MEDS: ATORVASTATIN CALCIUM 10 MG TABLET. PO SCH (19:58)
--- NOTE | 2018-01-03 20:56 | PN ---
DATE: 01/03/2018 LOCATION: He is in room 550. SUBJECTIVE: The patient is awake and alert, has eaten a fair amount of his breakfast and feels like he has a little appetite returning and also feels like his energy level has improved from yesterday. OBJECTIVE: VITAL SIGNS: Stable. He has been 24 hours without a fever. CHEST: Clear. HEART: Regular. ABDOMEN: Benign. SKIN: Clear. LABORATORY DATA: White blood count has rebounded little bit and is 3300 this morning. Platelet count is normalized at 140,000. BUN has decreased further to 13 and creatinine 1.2. Bilirubin has decreased also further down to 0.7. Liver function tests are much improved. Sugars are good. ASSESSMENT: 1. Febrile illness with positive blood cultures, still pending ID. 2. Fevers, improving. 3. Leukopenia, improving. 4. Thrombocytopenia, improving. 5. Acute kidney injury, resolved. 6. Elevated liver tests, improving. 7. Diabetes with good sugars. PLAN: We will continue the present. Await final ID, which I suspect will be a contaminant probably and at that point, we will follow ID's lead on oral antibiotics on discharge. CHEO DAILY MD DR: CORBY/marianne JOB#: [id number] / [id number]
[2018-01-03] MEDS: ZOLPIDEM 5 MG TABLET. PO PRN (22:41)
[2018-01-03 23:00] VITALS: BP 108/48
[2018-01-04 00:02] LABS: VANC TR 17.8 mcg/mL (10.0-20.0)
[2018-01-04] MEDS: VANCOMYCIN 1.75 GM in IV NORMAL SALINE 500ML BAG 500 ML IV SCH ×2 (00:20→12:22)
[2018-01-04] MEDS: VANCOMYCIN PER PHARMACY MC PRN (02:36)
[2018-01-04 03:01] VITALS: BP 129/67
[2018-01-04 07:00] VITALS: BP 135/60
[2018-01-04] MEDS: PIOGLITAZONE 15 MG TABLET. PO SCH (08:21)
[2018-01-04] MEDS: ASPIRIN 325 MG TABLET PO SCH (08:21)
[2018-01-04] MEDS: DOXYCYCLINE HYCLATE 100 MG in IV DEXTROSE 5% 100ML 100 ML IV SCH (08:21)
[2018-01-04] MEDS: LACTOBACILLUS RHAMNOSUS GG 1 CAPSULE. PO SCH (08:22)
[2018-01-04] MEDS: LOSARTAN POTASSIUM 50 MG TABLET. PO SCH (08:22)
[2018-01-04] MEDS: ALPRAZolam 0.5 MG TABLET PO SCH (08:23)
[2018-01-04] MEDS: amLODIPine BESYLATE 5 MG TABLET PO SCH (08:23)
[2018-01-04] MEDS: cefTRIAXone IV Push 1 GM VIAL. IVP SCH (10:52)
[2018-01-04 11:00] VITALS: BP 117/63
--- NOTE | 2018-01-04 11:06 | PN ---
DATE: 01/04/2018 He is in room 567. SUBJECTIVE: The patient is awake and alert, has finished breakfast and feels his appetite is returning his energy level is much better on a daily basis. OBJECTIVE: VITAL SIGNS: Stable. There has been, again, no fever now for 48 hours. CHEST: Clear. HEART: Regular. ABDOMEN: Benign. SKIN: Clear. LABORATORY DATA: No new labs from this morning except blood cultures pending with gram-positive cocci in clusters with no idea or sensitivities today. ASSESSMENT: 1. Febrile illness with positive blood cultures. Overall, improving. 2. Leukopenia, improving. 3. Thrombocytopenia, improving. 4. Acute kidney injury, resolved. 5. Elevated liver tests, improving. 6. Diabetes with decent blood sugars. PLAN: Continue present antibiotics, awaiting final ID with discharge plans per Infectious Disease once this is all available. CHEO DAILY MD DR: CORBY/marianne JOB#: [id number] / [id number]
--- NOTE | 2018-01-04 12:36 | PDOC ---
Infectious Disease Note Subjective Subjective feeling good, no complaints, no fever ROS ROS no n/v/d/ Vital Sign Vital Signs Vital Signs Date Time Temp Pulse Resp B/P (MAP) Pulse Ox O2 Delivery O2 Flow Rate FiO2 01/04/18 11:00 97.9 88 18 117/63 (81) 95 Room Air 97.9 01/03/18 08:00 2.0 Physical Exam PHYSICAL EXAM GENERAL: Propped up in bed, NAD LUNGS: Clear. HEART: S1, S2 regular. ABDOMEN: Obese, soft, NT EXTREMITIES: No edema or cyanosis. 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
== END 2018-01-04 14:10 | disposition home or self-care (01) | DRG 868 ==
LOC: ER 04:17 → 5 SOUTH 05:40
PROVIDERS: ADMIT Family Medicine; ATTEND Family Medicine
DX: A77.9 Spotted fever, unspecified (principal); E87.1 Hypo-osmolality and hyponatremia; N17.9 Acute kidney failure, unspecified; R78.81 Bacteremia; D69.6 Thrombocytopenia, unspecified; D72.819 Decreased white blood cell count, unspecified; E11.9 Type 2 diabetes mellitus without complications; F60.7 Dependent personality disorder; E78.00 Pure hypercholesterolemia, unspecified; E78.5 Hyperlipidemia, unspecified; E86.0 Dehydration; I10 Essential (primary) hypertension; K59.00 Constipation, unspecified; Z87.891 Personal history of nicotine dependence; Z90.49 Acquired absence of other specified parts of digestive tract; Z88.1 Allergy status to other antibiotic agents; Z88.0 Allergy status to penicillin; Z88.8 Allergy status to other drugs, medicaments and biological substances
CPT/HCPCS: 36415; 71045; 74176; 80047; 80053; 80202; 81001; 82553; 82962; 83605; 83690; 83735; 83880; 84439; 84443; 84484; 85025; 85027; 85610; 86308; 87040; 87205; 93005; 96365; J0690; J0696; J3370; J3490; J7030; J7040; 99285-25